=== PATIENT | male | born 1955 | race Caucasian/White ===

== ENCOUNTER → 2016-07-24 | Outpatient (CLI) | payer OTHER ==
[~2016-07-24] MED LIST: ALBU18002 INH; AZEL0.15 NAE; GEMF600T3 PO; LOSA50TA6 PO; MELO15TA10 PO; MULT-506 PO; OMEP-199 PO; PRED10TA PO; TIOT1SPR INH
[2016-07-24 17:44] LABS: ALT/SGPT 37 U/L (12-78); AST/SGOT 23 U/L (15-37); BLOOD UREA NITROGEN 15 mg/dl (7-18); BUN/CREATININE RATIO 12.8 (10-20); CARBON DIOXIDE 27 mmol/L (21-32); CHLORIDE 105 mmol/L (98-107); CHOLESTEROL 161 mg/dl (0-200); GLUCOSE 110 mg/dl (70-99); POTASSIUM 4.1 mmol/L (3.5-5.1); SODIUM 142 mmol/L (136-145); TRIGLYCERIDES 446 mg/dl (0-150)
[2016-07-24 17:48] LABS: ALB/GLOB RATIO 1.2 (0.9-2); ALKALINE PHOSPHATASE 68 U/L (45-117); CHOLESTEROL/HDL RATIO 5.6; HDL CHOLESTEROL 29 mg/dl; PROSTATE SPECIFIC ANTIGEN 0.723 ng/ml (0.000-4.000)
== END | disposition home or self-care (01) ==
LOC: C.LABBFT 10:34
PROVIDERS: ATTEND Nurse Practitioner
DX: Z11.59 Encounter for screening for other viral diseases (principal); Z12.5 Encounter for screening for malignant neoplasm of prostate; E78.00 Pure hypercholesterolemia, unspecified

== ENCOUNTER → 2016-11-21 | Day surgery (SDC) | payer OTHER ==
[2016-11-16 07:38] VITALS: BMI 37.0
[~2016-11-21] VITALS: Ht 182.9 cm; Wt 125.0 kg
[~2016-11-21] MED LIST changes: +LIDOCAINE HCL 2% 2 ML VIAL (20MG/ML) ONE; +MIDAZOLAM HCL 1 MG/ML 2ML VIAL ONE; +ONDANSETRON INJ 2 MG/ML 2 ML VIAL ONE; +PROPOFOL IV EMULSION 10 MG/ML 20 ML VIAL IV ONE; +SODIUM CHLORIDE 0.9% 500ML 500 ML IV ONE
[2016-11-21 11:11] VITALS: Ht 182.9 cm; Wt 125.0 kg
--- NOTE | 2016-11-21 11:38 | Endo History and Physical ---
History & Physical Date of Service: November 21, 2016. Chief Complaint: SCREENING Referring Physician: DR. RG History of Present Illness 61 yo CM who presents for screening colonoscopy. Past Surgical History Hx Cardiac Surgery: No Hx Internal Defibrillator: No Hx Pacemaker: No Hx Abdominal Surgery: Yes ([facility]) Hx of Implantable Prosthesis: No Hx Post-Op Nausea and Vomiting: No Hx Cancer Surgery: No Hx Thoracic Surgery: No Hx Orthopedic: No Hx Urinary Tract Surgery: No Family History None Social History Smoking Status: Current Every Day Smoker Hx Substance Use: No Hx Alcohol Use: Yes ("WEEKEND DRINKER" 2-3 DRINKS/DAY/WEEKEND) Allergies Coded Allergies: Oxycodone (Verified Allergy, Unknown, HIVES AND ITCHING, 11/21/16) Current Medications Reported Home Medications Medications Dose Route/Sig Max Daily Dose Days Date Category Prednisone 10 Mg Tab 10 Mg PO UD PRN 11/16/16 Reported Proair Respiclick (Albuterol Sulfate) 108 Mcg/Act Aer 2 [place] INH Q4H PRN 11/16/16 Reported Spiriva Respimat (Tiotropium [place] Monohydrate) 2.5 Mcg/Act Spr 2 P[place] INH HS 11/16/16 Reported Astepro (Azelastine Hcl) 0.15 % Spr 2 [place] MIGUEL HS 11/16/16 Reported Mobic (Meloxicam) 15 Mg Tab 15 Mg PO QAM 11/16/16 Reported Omeprazole Magnesium 20.6 Mg Cap 1 Tab PO QAM 11/16/16 Reported Multivitamin (Multivitamins) Tab 1 Tab PO QAM 11/16/16 Reported Lopid (Gemfibrozil) 600 Mg Tab 600 Mg PO QAM 11/16/16 Reported Cozaar (Losartan Potassium) 50 Mg Tab 50 Mg PO QAM 11/16/16 Reported Vital Signs Weight (Kilograms): 125.00 Height (Feet): 6 Height (Inches): 0 Date Time Temp Pulse Resp B/P Pulse Ox O2 Delivery O2 Flow Rate FiO2 11/21/16 11:22 37.3 110 22 159/96 94 Room Air Physical Exam General Appearance: WD/WN, no apparent distress Respiratory/Chest: Auscultation: breath sounds normal Cardiovascular: Heart Auscultation: RRR Abdomen: Bowel Sounds: normal Inspection & Palpation: soft, non-distended, no tenderness, guarding & rebound Assessment and Plan Assessment: 61 yo CM who presents for screening colonoscopy. Plan: Proceed with colonoscopy.
--- NOTE | 2016-11-21 12:06 | Discharge Instructions ---
Endoscopy Patient Instructions Date / Procedure(s) Performed November 21, 2016. Colonoscopy Allergy Information Coded Allergies: Oxycodone (Verified Allergy, Unknown, HIVES AND ITCHING, 11/21/16) Discharge Date / Findings November 21, 2016. Sigmoid polyp Diverticulosis Medication Instructions Stopped Medication(s): TO STOP ALL EXCEPT BLOOD PRESSURE AND PRILOSEC OK to resume all medications today as prescribed Reported Home Medications Medications Dose Route/Sig Max Daily Dose Days Date Category Prednisone 10 Mg Tab 10 Mg PO UD PRN 11/16/16 Reported Proair Respiclick (Albuterol Sulfate) 108 Mcg/Act Aer 2 [place] INH Q4H PRN 11/16/16 Reported Spiriva Respimat (Tiotropium [place] Monohydrate) 2.5 Mcg/Act Spr 2 Puffs INH HS 11/16/16 Reported Astepro (Azelastine Hcl) 0.15 % Spr 2 [place] MIGUEL HS 11/16/16 Reported Mobic (Meloxicam) 15 Mg Tab 15 Mg PO QAM 11/16/16 Reported Omeprazole Magnesium 20.6 Mg Cap 1 Tab PO QAM 11/16/16 Reported Multivitamin (Multivitamins) Tab 1 Tab PO QAM 11/16/16 Reported Lopid (Gemfibrozil) 600 Mg Tab 600 Mg PO QAM 11/16/16 Reported Cozaar (Losartan Potassium) 50 Mg Tab 50 Mg PO QAM 11/16/16 Reported Provider Instructions Activity Restrictions - No exercising or heavy lifting for 24 hours. - Do not drink alcohol the day of the procedure. - Do not drive a car or operate machinery until the day after the procedure. - Do not make any important decisions or sign important papers in 24 hours after the procedure. Following Day: - Return to full activity which may include returning to work/school. Diet Start your diet with liquids and light foods (jello, soup, juice, toast). Then eat your usual diet if not nauseated. Treatment For Common After Affects For mild abdominal pain, bloating, or excessive gas: - Rest - Eat lightly - Lie on right side Follow-Up Information Follow-up with DR. RG as scheduled Anesthesia Information What You Should Know You have had a procedure that required some medicine to reduce anxiety and discomfort. This treatment is called moderate sedation. After receiving the treatment, you may be sleepy, but you will be able to breathe on your own. The effects of the treatment may last for several hours. Follow these instructions along with Activity/Diet recommendations noted above: * Do NOT do anything where dizziness or clumsiness would be dangerous. * Rest quietly at home today, then you can be up and about tomorrow. * Have a responsible person stay with you the rest of today. * You may have had an I.V. today. If so, you may take the dressing off later today. Recommendations Call your doctor if: * Trouble breathing * Continuous vomiting for more than 24 hours * Temperature above 101 degrees * Severe abdominal pain or bloating * Pain not relieved by pain medicine ordered * There is increased drainage or redness from any incision * A large amount of rectal bleeding greater than 2-3 tablespoons. (If you had a polyp/s removed or have hemorrhoids, a small amount of blood - from the rectum is to be expected.) * You have any unanswered questions or concerns. IN THE EVENT OF A SERIOUS EMERGENCY, GO TO THE NEAREST EMERGENCY ROOM Your discharge instructions were prepared by provider Stevie Steve. Patient Instructions Signature Page Ryan Rosas Patient (or Guardian) Signature/Date: I have read and understand the instructions given to me by my caregivers. Caregiver/RN/Doctor Signature/Date: The above-named patient and/or guardian has received patient instructions on this date. + Original Patient Signature Page (only) stays with chart. Please make copy for patient.
--- NOTE | 2016-11-21 12:11 | GI REPORT ---
Procedure Date: 11/21/2016 11:38 AM Procedure: Colonoscopy Indications: Screening for colorectal malignant neoplasm Medicines: Monitored Anesthesia Care Complications: No immediate complications. Estimated Blood Loss: Estimated blood loss: none. Procedure: Pre-Anesthesia Assessment: - Prior to the procedure, a History and Physical was performed, and patient medications and allergies were reviewed. The patient's tolerance of previous anesthesia was also reviewed. The risks and benefits of the procedure and the sedation options and risks were discussed with the patient. All questions were answered, and informed consent was obtained. Prior Anticoagulants: The patient has taken no previous anticoagulant or antiplatelet agents. ASA Grade Assessment: II - A patient with mild systemic disease. After reviewing the risks and benefits, the patient was deemed in satisfactory condition to undergo the procedure. After I obtained informed consent, the scope was passed under direct vision. Throughout the procedure, the patient's blood pressure, pulse, and oxygen saturations were monitored continuously. The scope was introduced through the anus and advanced to the terminal ileum. The colonoscopy was performed without difficulty. The patient tolerated the procedure well. The quality of the bowel preparation was good. The terminal ileum, ileocecal valve, appendiceal orifice, and rectum were photographed. Findings: A 3 mm polyp was found in the sigmoid colon. The polyp was sessile. The polyp was removed with a cold biopsy forceps. Resection and retrieval were complete. Multiple small-mouthed diverticula were found in the sigmoid colon. Impression: - One 3 mm polyp in the sigmoid colon, removed with a cold biopsy forceps. Resected and retrieved. - Diverticulosis in the sigmoid colon. Recommendation: - Resume previous diet. - Continue present medications. - Repeat colonoscopy for surveillance based on pathology results. - Return to primary care physician as previously scheduled. Stevie Steve DO 11/21/2016 12:10:33 PM This report has been signed electronically. Note Initiated On: 11/21/2016 11:38 AM I attest to the content of the Intraoperative Record and orders documented therein, exceptions below
--- NOTE | 2016-11-21 12:31 | Anesthesiology Progress Note ---
Anesthesia Post Op Note Date & Time November 21, 2016 at 12:31 Vital Signs Pain Intensity: 0 Vital Signs Past 12 Hours Date Time Temp Pulse Resp B/P Pulse Ox O2 Delivery O2 Flow Rate FiO2 11/21/16 12:05 93 20 118/85 95 Room Air 11/21/16 11:22 37.3 110 22 159/96 94 Room Air Notes Mental Status: alert / awake / arousable, participated in evaluation Pt Amnestic to Procedure: Yes Nausea / Vomiting: adequately controlled Pain: adequately controlled Airway Patency, RR, SpO2: stable & adequate BP & HR: stable & adequate Hydration State: stable & adequate Anesthetic Complications: no major complications apparent
[2016-11-21 12:33] VITALS: BP 125/85; PULSE 94; O2SAT 97
== END | disposition home or self-care (01) ==
LOC: C.GI 10:59
PROVIDERS: ATTEND Internal Medicine
DX: Z12.11 Encounter for screening for malignant neoplasm of colon (principal); D12.5 Benign neoplasm of sigmoid colon; K57.30 Diverticulosis of large intestine without perforation or abscess without bleeding; J45.909 Unspecified asthma, uncomplicated; J44.9 Chronic obstructive pulmonary disease, unspecified; Z88.5 Allergy status to narcotic agent; Z90.49 Acquired absence of other specified parts of digestive tract; F17.200 Nicotine dependence, unspecified, uncomplicated